=== PATIENT | female | born 2000 | race African-American/Black ===

== ENCOUNTER 2019-10-19 08:30 | Emergency (ER) | payer SELFPAY ==
[~2019-10-19] VITALS: Ht 172.7 cm; Wt 59.1 kg
[~2019-10-19 08:30] MED LIST: AMOXICILLIN 50500 MG PO; AMOXICILLIN 8751 TAB PO; DEPO-PROVER150 MG/M1 IM; NAPROSYN 2250 MG/TAB PO; PROAIR HFA0.09 MG/AC IH; PROVENTIL0.09 MG/A1 IH; TAMIFLU 75MG75 MG PO
[2019-10-19 08:38] VITALS: TEMP 98.6
[2019-10-19 09:13] LABS: BASO % 0.7 % (0.0-2.0); EOS # 0.1 (0.0-0.7); EOS % 2.7 % (0-4.0); GRAN # 2.4 (1.4-6.5); GRAN % 54.3 % (42.2-75.2); HEMATOCRIT 39.4 % (35.0-45.0); HEMOGLOBIN 13.2 g/dl (12.0-15.0); LYMPH # 1.5 (1.2-3.4); LYMPH % 32.7 % (20.0-51.0); MEAN CELL VOLUME 95 fl (80.0-95.0); MEAN CORPUSCULAR HEMOGLOBIN 32 pg (26.0-32.0); MEAN CORPUSCULAR HGB CONC 34 g/dl (33.0-37.0); MEAN PLATELET VOLUME 9.8 fl (7.4-10.4); MONO # 0.4 (0.1-0.6); MONO % 9.4 % (1.7-9.3); PLATELET COUNT 213 K/mm3 (130-400); RED BLOOD COUNT 4.17 M/mm3 (4.10-5.30); REDCELL DISTRIBUTION WIDTH-CV 12.1 % (11.5-14.5)
[2019-10-19 09:31] LABS: ALBUMIN 4.3 gm/dL (3.5-5.0); BILIRUBIN,TOTAL 0.3 mg/dL (0.0-1.0); CALCIUM 9.1 mg/dL (8.4-10.2); CREATININE, serum 0.64 (0.52-1.25); POTASSIUM 3.5 mmol/L (3.4-5.0); TOTAL PROTEIN 7.7 gm/dL (6.4-8.2)
[2019-10-19] MEDS ORDERED: FLEXERIL 1010 MG/TAB PO (10:19)
[2019-10-19] MEDS ORDERED: NORCO 325 MG-51 TAB PO (10:19)
[2019-10-19 11:12] LABS: COLLECTION METHOD CLEAN CATCH
[2019-10-19 11:24] LABS: MUCOUS Present /lpf; PH 7 (5-8); SQUAMOUS EPITHELIAL 0-2 /hpf; URINE APPEARANCE Clear; URINE BACTERIA Moderate /hpf; URINE BILIRUBIN Negative (NEGATIVE); URINE BLOOD 1+ (NEGATIVE); URINE COLOR Yellow; URINE GLUCOSE Negative (NEGATIVE); URINE KETONE Negative (NEGATIVE); URINE LEUKOCYTE ESTERASE Negative (NEGATIVE); URINE NITRATE Positive (NEGATIVE); URINE PROTEIN(semi-quant) Negative (NEGATIVE); URINE RBC 0-2 /hpf; URINE UROBILINOGEN Negative (NEGATIVE)
[2019-10-19 11:46] VITALS: BP 115/72; PULSE 85
[2019-10-21] MEDS ORDERED: MACROBID 1100 MG/CAP PO (16:11)
== END 2019-10-19 11:53 | disposition home or self-care (01) ==
LOC: COL.ER 08:30
PROVIDERS: Emergency Medicine
DX: S06.0X0A Concussion without loss of consciousness, initial encounter (principal); S16.1XXA Strain of muscle, fascia and tendon at neck level, initial encounter; S80.02XA Contusion of left knee, initial encounter; S80.01XA Contusion of right knee, initial encounter; J45.909 Unspecified asthma, uncomplicated; R40.2412 Glasgow coma scale score 13-15, at arrival to emergency department; F17.210 Nicotine dependence, cigarettes, uncomplicated; V43.52XA Car driver injured in collision with other type car in traffic accident, initial encounter
CPT/HCPCS: J1170; J1885; J3010; J7030

== ENCOUNTER 2021-08-08 19:24 | Emergency (ER) | payer SELFPAY ==
[~2021-08-08] VITALS: Ht 172.7 cm; Wt 61.4 kg
[~2021-08-08 19:24] MED LIST changes: +FLEXERIL 1010 MG/TAB PO; +MACROBID 1100 MG/CAP PO; +NORCO 325 MG-51 TAB PO
[2021-08-08 19:45] VITALS: TEMP 99.3
[2021-08-08 20:36] LABS: STREP SCREEN NEGATIVE
[2021-08-08] MEDS ORDERED: PEN-VEE K500 MG PO (21:10)
[2021-08-08 21:24] VITALS: BP 114/70; PULSE 76
== END 2021-08-08 21:24 | disposition home or self-care (01) ==
LOC: COL.ER 19:24
PROVIDERS: Nurse Practitioner
DX: J02.9 Acute pharyngitis, unspecified (principal)
CPT/HCPCS: J0696; J1100

== ENCOUNTER 2022-03-27 01:53 | Emergency (ER) | payer SELFPAY ==
[~2022-03-27] VITALS: Ht 172.7 cm; Wt 61.4 kg
[~2022-03-27 01:53] MED LIST changes: +CEFTIN500 MG PO; +PEN-VEE K500 MG PO; +ZOFRAN ODT4 MG PO
[2022-03-27 01:57] VITALS: BP 113/71; TEMP 97.1
[2022-03-27 02:46] VITALS: PULSE 86
== END 2022-03-27 02:46 | disposition home or self-care (01) ==
LOC: COL.ER 01:53
DX: S90.111A Contusion of right great toe without damage to nail, initial encounter (principal); Z28.311 Partially vaccinated for COVID-19; W22.8XXA Striking against or struck by other objects, initial encounter; Y92.003 Bedroom of unspecified non-institutional (private) residence as the place of occurrence of the external cause

== ENCOUNTER 2022-04-29 17:02 | Emergency (ER) | payer SELFPAY ==
[~2022-04-29] VITALS: Ht 172.7 cm; Wt 56.8 kg
[2022-04-29 17:06] VITALS: BP 147/89; TEMP 99.2
[2022-04-29 17:36] LABS: STREP SCREEN NEGATIVE
[2022-04-29] MEDS ORDERED: AMOXICILLIN 8751 TAB PO (17:52)
[2022-04-29 17:59] VITALS: PULSE 95
== END 2022-04-29 17:59 | disposition home or self-care (01) ==
LOC: COL.ER 17:02
PROVIDERS: Physician Assistant
DX: J03.80 Acute tonsillitis due to other specified organisms (principal); Z20.822 Contact with and (suspected) exposure to COVID-19; Z28.311 Partially vaccinated for COVID-19

== ENCOUNTER 2023-02-25 22:56 | Emergency (ER) | payer MEDICAID ==
[~2023-02-25] VITALS: Ht 172.7 cm; Wt 79.5 kg
[~2023-02-25 22:56] MED LIST changes: +QUALITY CHOICE1 TA7
[2023-02-25 23:17] VITALS: TEMP 98.6
[2023-02-25 23:36] VITALS: BP 140/78; PULSE 76
== END 2023-02-25 23:36 | disposition home or self-care (01) ==
LOC: COL.ER 22:56
DX: O36.8130 Decreased fetal movements, third trimester, not applicable or unspecified (principal); O9A.213 Injury, poisoning and certain other consequences of external causes complicating pregnancy, third trimester; R07.89 Other chest pain; Z3A.28 28 weeks gestation of pregnancy; W17.89XA Other fall from one level to another, initial encounter; Y92.59 Other trade areas as the place of occurrence of the external cause; Y99.0 Civilian activity done for income or pay

== ENCOUNTER 2023-02-26 00:05 | Outpatient (CLI) | payer MEDICAID ==
[2023-02-25] VITALS: BP 116/58; PULSE 80; TEMP 97.7
--- NOTE | 2023-02-25 | NUR ---
Pt resting in bed, head of bed slightly elevated. Placed on [facility] and TOCO for monitoring. Abdomen soft, non-tender to palpation and this RN can palpate movement.
[~2023-02-26] VITALS: Ht 172.7 cm; Wt 77.7 kg
== END 2023-02-26 00:45 | disposition home or self-care (01) ==
LOC: LDRO 00:05
DX: O99.891 Other specified diseases and conditions complicating pregnancy (principal); W19.XXXA Unspecified fall, initial encounter; Z3A.27 27 weeks gestation of pregnancy

== ENCOUNTER 2023-11-08 18:30 | Emergency (ER) | payer MEDICAID ==
[~2023-11-08] VITALS: Ht 170.2 cm; Wt 72.7 kg
[~2023-11-08 18:30] MED LIST changes: +IBU600 MG PO; +TYLENOL 500MG500 MG PO
[2023-11-08 18:35] VITALS: BP 116/78; TEMP 98.2
[2023-11-08 19:35] VITALS: PULSE 81
== END 2023-11-08 19:37 | disposition home or self-care (01) ==
LOC: COL.ER 18:30
DX: S92.512A Displaced fracture of proximal phalanx of left lesser toe(s), initial encounter for closed fracture (principal); W22.8XXA Striking against or struck by other objects, initial encounter